=== PATIENT | female | born 1970 | race Caucasian/White ===

== ENCOUNTER 2016-09-27 10:07 | Day surgery (SDC) | payer OTHER ==
[2016-09-22 10:39] VITALS: BMI 34.7
[2016-09-27] MEDS ORDERED: BUPIVACAINE HCL/PF 0.5% (5MG/ML) 10 ML VIAL ONE (10:18)
[2016-09-27] MEDS ORDERED: GUM MASTIC/STORAX/MSAL/ALCOHOL 1 DRP DROPSBTL MC ONE (10:19)
[2016-09-27] MEDS ORDERED: PROPOFOL 20 ML ONE (10:48)
[2016-09-27] MEDS ORDERED: ONDANSETRON 4 MG/2 ML VIAL ONE (10:48)
[2016-09-27] MEDS ORDERED: MIDAZOLAM HCL 2 MG/2 ML SINGLE DOSE VIAL ONE (10:48)
[2016-09-27] MEDS ORDERED: DEXAMETHASONE SOD PHOSPHATE 4 MG/1 ML VIAL ONE (10:48)
[2016-09-27] MEDS ORDERED: LIDOCAINE HCL/PF 2% SDV 5ML VIAL ONE (10:48)
--- NOTE | 2016-09-27 12:00 | OP ---
DATE OF OPERATION: 09/27/2016 SURGEON: Reid Hanson MD PREOPERATIVE DIAGNOSIS: Left carpal tunnel syndrome. POSTOPERATIVE DIAGNOSIS: Left carpal tunnel syndrome. OPERATIVE PROCEDURE: Left endoscopic carpal tunnel release. ANESTHESIA: Genera. COMPLICATIONS: None. ESTIMATED BLOOD LOSS: Minimal. INDICATIONS FOR PROCEDURE: The patient is a 46-year-old female with the above findings, indicated for operative treatment. The risks, benefits, and alternatives were discussed with the patient at length, and proper informed consent was obtained. PROCEDURE: After proper identification of the patient and the correct operative site, the patient was brought to the operating room and placed supine on the operating table with prominences well padded. General anesthesia was provided by the anesthesiologist. Left upper extremity was prepped and draped in the usual sterile fashion. Well-padded tourniquet was placed with a sterile prep. Esmarch bandage used to exsanguinate the right upper extremity. Tourniquet inflated to 250 mmHg. A transverse incision was made over the proximal wrist crease. Incision was taken sharply through the skin with blunt and sharp dissection of subcutaneous tissues. Antebrachial fascia was divided, and the carpal canal was entered. Elevator was used to free soft tissue off the undersurface of the transverse carpal ligament. Hamate finder dilators were used to prepare the canal, and the MicroAire Endoscopic Carpal Tunnel Release System was used and inserted to the distal aspect of the transverse carpal ligament. At all times throughout the procedure, excellent visualization was achieved, and at no time was any soft tissue allowed to interpose between the blade and the undersurface of the transverse carpal ligament. The blade was deployed at the distal aspect of the transverse carpal ligament, and the ligament was then divided in its entirety. The distal 4 cm of antebrachial fascia was divided under direct mini-approach using the same incision. This provided complete release to the median nerve. The wrist wound was irrigated with saline and repaired with a 4-0 Monocryl suture. Steri-Strips and sterile dressings were applied. The patient was reversed from anesthesia and brought to the recovery room in stable condition. She tolerated the procedure well. Suleman [id number]
[2016-09-27] MEDS ORDERED: oxyCODONE HCL 5 MG TABLET PO PRN ×2 (12:21→12:55)
[2016-09-27] MEDS ORDERED: LACTATED RINGERS SOLUTION 1,000 ML IV SCH (12:30)
[2016-09-27] MEDS ORDERED: ONDANSETRON 4 MG/2 ML VIAL IVPUSH PRN (12:54)
[2016-09-27] MEDS ORDERED: ONDANSETRON *ODT* 4 MG TABLET ONE (13:48)
[2016-09-27 15:05] VITALS: TEMP 97.7
[2016-09-27 15:11] VITALS: BP 132/75; PULSE 82
--- NOTE | 2016-09-29 11:45 | OP ---
DATE OF OPERATION: PREOPERATIVE DIAGNOSIS: Left carpal tunnel syndrome. POSTOPERATIVE DIAGNOSIS: Left carpal tunnel syndrome. OPERATIVE PROCEDURE: Left endoscopic carpal tunnel release converted to open procedure. SURGEON: Reid Hanson MD ANESTHESIA: General. COMPLICATIONS: None. ESTIMATED BLOOD LOSS: Minimal. INDICATIONS FOR PROCEDURE: The patient is a 46-year-old female with above finding indicated for operative treatment. Risks, benefits, and alternatives were discussed with the patient at length. Proper informed consent was obtained. DESCRIPTION OF PROCEDURE: After proper identification of patient and correct operative site, the patient was brought to the operating room and placed supine on the table, prominences well padded. General anesthesia provided by the anesthesiologist adequate for the procedure. Left upper extremity was prepped and draped in the usual sterile fashion. A well-padded tourniquet was placed with sterile prep. Esmarch bandage used to exsanguinate the left upper extremity. Tourniquet was inflated to 250 mmHg. A transverse incision was made over the proximal wrist crease. Incision was taken sharply through the skin with sharp and blunt dissection in the subcutaneous tissues. Antebrachial fascia was divided, and the carpal canal was entered. Elevator was used to free any soft tissue off the undersurface of transverse carpal ligament. dilators were used to prepare the canal, and the Micro-Aire endoscopic carpal tunnel release system was used. It was inserted into the carpal canal. Excellent visualization achieved; however, soft tissue was interposing between the blade and the undersurface off and on the transverse carpal ligament. Despite several attempts, it was not possible to rectify this and get the soft tissue out of the way. Therefore, it was decided for the safety of the patient to proceed with an open carpal tunnel release. The wound was irrigated and repaired with a 4-0 Monocryl suture. A 2nd incision was then made over the volar aspect of the wrist. Incision was taken sharply to the skin with blunt and sharp dissection of subcutaneous tissues. Palmar fascia was divided longitudinally. Transverse carpal ligament was identified and divided longitudinally along with the distal 4 cm of the antebrachial fascia under direct visualization with loupe magnification. This provided complete release of the median nerve at the wrist. The wound was irrigated with saline and repaired with a 5-0 nylon suture. Sterile dressings were applied. The patient was reversed from anesthesia and brought to the recovery room in stable condition. She tolerated the procedure well. Suleman [id number]
== END 2016-09-27 14:20 | disposition home or self-care (01) ==
LOC: FASU 10:07
PROVIDERS: ATTEND Orthopaedic Surgery Hand Surgery
PROC: 01N50ZZ Release Median Nerve, Open Approach (ICD-10-PCS; principal; 2016-09-27 11:30)
DX: G56.02 Carpal tunnel syndrome, left upper limb (principal); Z53.31 Laparoscopic surgical procedure converted to open procedure
CPT/HCPCS: 84703; 94760

== ENCOUNTER 2018-03-27 09:41 | Day surgery (SDC) | payer OTHER ==
[2018-03-15 17:28] VITALS: BMI 34.2
[2018-03-27] MEDS ORDERED: MIDAZOLAM HCL 2 MG/2 ML SINGLE DOSE VIAL ONE (11:13)
[2018-03-27] MEDS ORDERED: PROPOFOL 20 ML ONE (11:13)
[2018-03-27] MEDS ORDERED: LIDOCAINE HCL/PF 2% SDV 5ML VIAL ONE (11:16)
[2018-03-27] MEDS ORDERED: ONDANSETRON 4 MG/2 ML VIAL IVPUSH PRN (11:40)
[2018-03-27] MEDS ORDERED: oxyCODONE HCL 5 MG TABLET PO PRN ×2 (11:40)
[2018-03-27] MEDS ORDERED: BUPIVACAINE HCL/PF 2.5 MG/ML - 30 ML VIAL IJ ONE (11:44)
[2018-03-27] MEDS ORDERED: LACTATED RINGERS SOLUTION 1,000 ML IV SCH (11:45)
[2018-03-27] MEDS ORDERED: BUPIVACAINE HCL/PF 0.25% (2.5MG/ML) 10 ML VIAL IJ ONE (12:01)
[2018-03-27] MEDS ORDERED: ACETAMINOPHEN 325 MG TABLET (FP) ONE (13:26)
[2018-03-27] MEDS ORDERED: ACETAMINOPHEN 325 MG TABLET (FP) PO ONE (13:32)
[2018-03-27 14:19] VITALS: BP 130/72; PULSE 76; TEMP 97.8
--- NOTE | 2018-04-01 12:39 | OP ---
DATE OF OPERATION: 03/27/2018 PREOPERATIVE DIAGNOSIS: Left ulnar neuropathy at elbow. POSTOPERATIVE DIAGNOSIS: Left ulnar neuropathy at elbow. OPERATIVE PROCEDURE: Left ulnar nerve decompression at elbow. SURGEON: Reid Hanson MD INTERNATIONAL ACCOUNTING MANAGER: DAYANNA Alba ANESTHESIA: General. COMPLICATIONS: None. ESTIMATED BLOOD LOSS: Minimal. INDICATION FOR PROCEDURE: The patient is a 48-year-old female with the above finding, indicated for operative treatment. Risks, benefits, and alternatives were discussed with patient at length, proper informed consent was obtained. PROCEDURE: After proper identification of patient and correct operative site, patient brought to operating room, placed supine on the table, prominences well padded. General anesthesia provided. Left upper extremity was prepped and draped in usual sterile fashion. A well-padded tourniquet was placed with sterile prep. Esmarch bandage to exsanguinate left upper extremity. Tourniquet was inflated to 250 mmHg. A curvilinear incision was made over the posterior medial aspect of the elbow. Incision was taken sharply through the skin with blunt and sharp dissection of subcutaneous tissues. Ulnar nerve was identified proximally in the incision at the level of the intermuscular septum. The intermuscular septum was partially resected. The ulnar nerve was then decompressed from a proximal to distal direction through Sandoval's ligament in the cubital tunnel and all the way into the 2 heads of the flexor carpi ulnaris muscle belly. This completely decompressed the nerve in the elbow. There was no subluxation of the nerve with elbow flexion and extension, therefore, no transposition was performed. The wound was irrigated with saline and repaired and repaired with 4-0 Vicryl and 4-0 Monocryl sutures. Sterile dressings were applied. The patient was reversed from anesthesia and brought to the recovery room in stable condition. She tolerated procedure well. Ashvin Donnelly, the ortho assistant, was integral throughout the procedure. The procedure could not have been performed without a skilled operative ortho assistant. REID HANSON M.D. [id number]
== END 2018-03-27 14:19 | disposition home or self-care (01) ==
LOC: FASU 09:41
PROVIDERS: ATTEND Orthopaedic Surgery Hand Surgery
PROC: 01N40ZZ Release Ulnar Nerve, Open Approach (ICD-10-PCS; principal; 2018-03-27 11:00)
DX: G56.22 Lesion of ulnar nerve, left upper limb (principal)
CPT/HCPCS: 84703; 94760